=== PATIENT | male | born 1960 | race Caucasian/White ===

== ENCOUNTER 2020-03-31 16:11 | Emergency (ER) | payer OTHER | END 2020-03-31 16:26 | disposition home or self-care (01) | LOC: JVIRT 16:11 | DX: Z11.59 Encounter for screening for other viral diseases (principal) | CPT/HCPCS: C9803; Q3014-GT; U0003 ==

== ENCOUNTER 2020-12-07 14:53 | Emergency (ER) | payer OTHER ==
[2020-12-08 15:07] LABS: SARS-CoV-2 NAA Not Detected (Not Detected)
== END 2020-12-07 17:51 | disposition home or self-care (01) ==
LOC: JVIRT 14:53
DX: Z11.52 Encounter for screening for COVID-19 (principal)
CPT/HCPCS: C9803; Q3014-GT; U0003; U0005